=== PATIENT | male | born 1950 | race Two or more races ===

== ENCOUNTER 2016-11-12 20:26 | Emergency (ER) | payer MEDICAID, OTHER ==
[~2016-11-12] VITALS: Ht 175.3 cm; Wt 81.6 kg
[2016-11-12 20:35] VITALS: BP 109/81
--- NOTE | 2016-11-12 20:40 | Emergency Room Report ---
History of Present Illness General Chief Complaint: Pain Source: Patient Present Illness HPI [id number] BIBEMS for right groin hematoma s/p cath for angiogram of right leg earlier today at [facility]. Sent from [place] No active bleeding Denies right leg pain Denies chest pain, SOB, fever/chills Allergies: Coded Allergies: No Known Allergies (Unverified , 11/12/16) Patient History Past Medical History: other - PVD Past Surgical History: other - Left leg amputation, above knee Pertinent Family History: none Social History: Denies: alcohol use, drug use, smoking Immunizations: UTD Reviewed Nursing Documentation: PMH: Agreed, PSxH: Agreed Nursing Documentation-PMH Hx Hypertension: Yes Hx Diabetes: Yes Hx Gastrointestinal Problems: Yes Review of Systems All Other Systems: negative except mentioned in HPI Physical Exam Vital Signs Date Time Temp Pulse Resp B/P Pulse Ox O2 Delivery O2 Flow Rate FiO2 11/12/16 20:17 137 11/12/16 20:17 97.9 16 98/64 97 Room Air Sp02 EP Interpretation: reviewed, normal General Appearance: normal inspection, well appearing, no apparent distress, alert, GCS 15, non-toxic Head: normocephalic, atraumatic Eyes: bilateral eye EOMI, bilateral eye PERRL ENT: normal ENT inspection, hearing grossly normal, normal voice Neck: normal inspection, full range of motion, supple, no bony tend Respiratory: normal inspection, lungs clear, normal breath sounds, no respiratory distress, no retraction, no wheezing Cardiovascular #1: normal peripheral pulses, regular rate, rhythm, no edema, other - Right dorsalis pedis. Palpable. seen on ultrasound Gastrointestinal: normal inspection, normal bowel sounds, non tender, soft, no guarding, no hernia, other - Right groin: large 6cm palpable hematoma. No overlying erythema. Not warmth. No active bleeding from site Genitourinary: no CVA tenderness Musculoskeletal: normal inspection, back normal, normal range of motion, Davis' s Sign negative, other - Left leg above knee amputation. Right leg: normal color. 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 Afebrile. - Unlikely acutely infectious given just happened today - Not expanding - Pressure dressing applied with ice - Good peripheral pulses - Labs pending at time of endorsement Endorsed to Dr Dias at 839pm for med/surg admission EKG Diagnostic Results Rate: normal Rhythm: NSR ST Segments: no acute changes ASA given to the pt in ED: No Chest X-Ray Diagnostic Results Chest X-Ray Diagnostic Results : Chest X-Ray Ordered: Yes EP Interpretation: Yes Interpretation: no consolidation, no effusion, no pneumothorax, no acute cardiopulmonary disease Indication: Other - admit Impression: No acute disease Interpreting ER Provider: Electronically by Dr Styles Last Vital Signs Date Time Temp Pulse Resp B/P Pulse Ox O2 Delivery O2 Flow Rate FiO2 11/12/16 20:17 97.9 80 16 98/64 97 Room Air Status: improved Disposition: ADMITTED INPATIENT Condition: Serious TAY STYLES M.D. Nov 12, 2016 20:40
[2016-11-12] MEDS ORDERED: NICOTINE LOZENGE4 MG PO (20:49)
[2016-11-12] MEDS ORDERED: GABAPENTIN300 MG ORAL ×2 (20:49)
[2016-11-12] MEDS ORDERED: LIDOCAINE700 M1 TP (20:49)
[2016-11-12] MEDS ORDERED: ISOSORBIDE MONO30 M1 PO (20:49)
[2016-11-12] MEDS ORDERED: ACETAMINOPHEN325 M1 ORAL (20:49)
[2016-11-12] MEDS ORDERED: ASPIRIN81 MG ORAL (20:49)
[2016-11-12] MEDS ORDERED: AMLODIPINE BESY10 MG ORAL (20:49)
[2016-11-12] MEDS ORDERED: BUPROPION HCL75 MG PO (20:49)
[2016-11-12] MEDS ORDERED: BACLOFEN10 MG ORAL (20:49)
[2016-11-12] MEDS ORDERED: XALATAN2.5 ML LEFT EYE (20:49)
[2016-11-12] MEDS ORDERED: NOVOLOG100 UNIT/3 SUBQ (20:49)
[2016-11-12] MEDS ORDERED: CYMBALTA30 MG ORAL (20:49)
[2016-11-12] MEDS ORDERED: MELATONIN 3 MG1 EACH ORAL (20:49)
[2016-11-12] MEDS ORDERED: CARVEDILOL25 MG ORAL (20:49)
[2016-11-12] MEDS ORDERED: LANTUS SOL100 UNIT/1 SUBQ (20:49)
[2016-11-12] MEDS ORDERED: ENALAPRIL MALEA20 MG ORAL (20:49)
[2016-11-12] MEDS ORDERED: OMEPRAZOLE20 M2 ORAL (20:49)
[2016-11-12] MEDS ORDERED: ATORVASTATIN CA80 MG ORAL (20:49)
[2016-11-12] MEDS ORDERED: BRILINTA90 MG PO (20:55)
[2016-11-12] MEDS ORDERED: POLYVINYL ALCOH15 ML BOTH EYES (20:55)
[2016-11-12] MEDS ORDERED: TRAZODONE HCL50 MG ORAL (20:55)
[2016-11-12] MEDS ORDERED: NYSTATIN30 GM TP (20:55)
[2016-11-12] MEDS ORDERED: POLYETHYLENE GL17 GM ORAL (20:55)
[2016-11-12] MEDS ORDERED: SENNA8.6 M2 PO (20:55)
[2016-11-12 21:21] LABS: BASOPHILS % (AUTO) 1.1 % (0.0-2.0); EOSINOPHILS % (AUTO) 3.7 % (0.0-3.0); LYMPHOCYTES % (AUTO) 22.8 % (20.0-45.0); MEAN CORPUSCULAR HEMOGLOBIN 30.5 PG (27.0-31.0); MEAN CORPUSCULAR HGB CONC 33.2 G/DL (32.0-36.0); MEAN CORPUSCULAR VOLUME 92 FL (80-99); MEAN PLATELET VOLUME 7.3 FL (6.5-10.1); MONOCYTES % (AUTO) 4.9 % (1.0-10.0); NEUTROPHILS % (AUTO) 67.6 % (45.0-75.0); PLATELET COUNT 330 K/UL (150-450); RED BLOOD COUNT 4.71 M/UL (4.70-6.10)
[2016-11-12 21:28] LABS: INR 1.5 (0.9-1.1); PROTHROMBIN TIME 15.5 SEC (9.30-11.50)
[2016-11-12] MEDS ORDERED: LORazepam Inj 2mg/ml 1ml IV PRN (21:30)
[2016-11-12] MEDS ORDERED: Mylanta II UD 30ml ORAL PRN (21:30)
[2016-11-12] MEDS ORDERED: Morphine Sulfate 2mg/ml Inj IVP PRN (21:30)
[2016-11-12] MEDS ORDERED: Zolpidem 5mg tab ORAL PRN (21:30)
[2016-11-12] MEDS ORDERED: Miralax 17gm pkt ORAL PRN (21:30)
[2016-11-12 21:34] LABS: ALANINE AMINOTRANSFERASE 17 U/L (3-41); ALBUMIN/GLOBULIN RATIO 1.2 (1.0-2.7); ANION GAP 15 (5-15); ASPARTATE AMINO TRANSFERASE 14 U/L (5-40); CALCIUM 9.6 mg/dL (8.6-10.2); CARBON DIOXIDE 26 mEQ/L (20-30); CHLORIDE 99 mEQ/L (98-107); CREATININE 0.9 mg/dL (0.7-1.2); GLOMERULAR FILTRATION RATE > 60 mL/min (>60); HEMOLYSIS 8; POTASSIUM 4.6 mEQ/L (3.4-4.9); SODIUM 140 mEQ/L (135-145); TOTAL PROTEIN 6.7 g/dL (6.6-8.7)
[2016-11-12 21:40] LABS: APPEARANCE,URINE CLEAR; KETONES,URINE NEGATIVE (NEGATIVE); LEUKOCYTE ESTERASE ,URINE NEGATIVE (NEGATIVE); NITRITE,URINE NEGATIVE (NEGATIVE); PH,URINE 7 (4.5-8.0); PROTEIN,URINE NEGATIVE (NEGATIVE); UROBILINOGEN,URINE NORMAL MG/DL (0.0-1.0)
[2016-11-12] MEDS ORDERED: Morphine Sulfate 4mg/ml Inj IVP ONE (22:00)
[2016-11-12 22:45] VITALS: BP 108/93
[2016-11-12 23:27] LABS: BASOPHILS % (AUTO) 0.8 % (0.0-2.0); EOSINOPHILS % (AUTO) 1.4 % (0.0-3.0); LYMPHOCYTES % (AUTO) 13.4 % (20.0-45.0); MEAN CORPUSCULAR HEMOGLOBIN 30.7 PG (27.0-31.0); MEAN CORPUSCULAR HGB CONC 33.1 G/DL (32.0-36.0); MEAN CORPUSCULAR VOLUME 93 FL (80-99); MEAN PLATELET VOLUME 7.3 FL (6.5-10.1); MONOCYTES % (AUTO) 3.8 % (1.0-10.0); NEUTROPHILS % (AUTO) 80.7 % (45.0-75.0); PLATELET COUNT 331 K/UL (150-450); RED BLOOD COUNT 4.49 M/UL (4.70-6.10)
[2016-11-12 23:39] VITALS: BP 123/68
[2016-11-13 00:25] VITALS: BP 122/64
[2016-11-13 00:40] VITALS: BP 108/69
[2016-11-13 01:05] VITALS: BP 119/64
[2016-11-13 01:10] VITALS: BP 119/64
[2016-11-13] MEDS ORDERED: NovoLOG Insulin Flexpen SUBQ SCH (06:30)
[2016-11-13] MEDS ORDERED: Miralax 17gm pkt ORAL SCH (09:00)
[2016-11-13] MEDS ORDERED: Carvedilol 25mg Tab ORAL SCH (09:00)
[2016-11-13] MEDS ORDERED: Imdur 30mg tab ORAL SCH (09:00)
[2016-11-13] MEDS ORDERED: DULoxetine 30mg cap ORAL SCH (09:00)
--- NOTE | 2016-11-13 10:29 | Diagnostic Imaging Report ---
Indication: SOB Technique: One view of the chest Comparison: none Findings: Lungs and pleural spaces are clear. The aorta is tortuous and calcified. Upper mediastinum is unremarkable. There is some atelectasis at the left lateral lung base Impression: No acute process
--- NOTE | 2016-11-13 12:40 | Diagnostic Imaging Report ---
APPROVED REPORT CPT Code: 35004 Present Symptoms Lower Extremity Edema: Right Comments: Hx of recent Angiogram RIGHT LEG: Venous imaging reveals acute thrombus in the common femoral to superficial femoral veins. Imaging also reveals patency of the popliteal and calf veins. Doppler indicates normal spontaneous flow within these segments. ER was notified of abnormal results at 12:30 AM .
--- NOTE | 2016-11-13 13:39 | Diagnostic Imaging Report ---
APPROVED REPORT CPT Code: 29988 Symptoms Comments: Hx of recent Angiogram Comments R/O Aneurysm RIGHT LEG: Common femoral artery waveform analysis is within normal limits at rest. Color flow duplex sonography reveals diffuse plaque throughout the superficial femoral artery. Color flow duplex sonography reveals an occlusion in distal femoral artery. Another occlusion is noted at the popliteal artery. The tibioperoneal trunk was not well visualized. The dorsalis pedis artery was also not well visualized. Doppler posterior tibial artery consistent with critical ischemia at rest. ER was notified of abnormal results at 12:30 AM. A 13cm X 11 cm nonvascular mass seen at groin area (possible hematoma).
--- NOTE | 2016-11-13 18:43 | Cardiology Report ---
APPROVED REPORT EKG Measurement Heart [id number] ND 122P [id number] Normal sinus rhythm Normal ECG
[2016-11-13] MEDS ORDERED: Atorvastatin 80mg tab ORAL SCH (21:00)
[2016-11-13] MEDS ORDERED: TraZODone 50mg tab ORAL SCH (21:00)
== END 2016-11-13 01:15 | disposition short-term general hospital (02) ==
LOC: EDBD 20:26 → EMR 21:34 → 3E 21:35 → UNDOADMIN 21:35 → EDBEDREQ 21:54
DX: S30.1XXA Contusion of abdominal wall, initial encounter (principal); Z89.612 Acquired absence of left leg above knee; I10 Essential (primary) hypertension; E11.9 Type 2 diabetes mellitus without complications; I73.9 Peripheral vascular disease, unspecified; Z98.62 Peripheral vascular angioplasty status; L76.32 Postprocedural hematoma of skin and subcutaneous tissue following other procedure; Y84.8 Other medical procedures as the cause of abnormal reaction of the patient, or of later complication, without mention of misadventure at the time of the procedure
CPT/HCPCS: 36415; 71010; 80053; 81003; 85025; 85610; 85730; 86850; 86900; 86901; 86927; 87040; 87081; 93005; 93926; 93970; 96374; 96375; 99285; J1815; J2270; J2405